=== PATIENT | male | born 1960 | race African-American/Black ===

== ENCOUNTER 2020-04-29 05:24 | Observation (INO) | payer MEDICAID ==
[~2020-04-29] VITALS: Ht 170.2 cm; Wt 50.0 kg
[2020-04-29 05:57] LABS: BASOPHILS 0.3 % (0-2); EOSINOPHILS 0.8 % (0-7); HEMATOCRIT 35.8 % (42.0-54.0); HEMOGLOBIN 11.3 g/dL (13.5-17.5); IMMATURE GRANULOCYTES 0.3 % (0-5); LYMPHOCYTES 26.9 % (15-50); MCHC 31.6 g/dL (31.0-37.0); MCV 88.6 fL (80.0-100.0); MEAN PLATELET VOLUME 8.1 fL (7.4-10.4); NEUTROPHILS 61.7 % (40-80); PLATELET COUNT 294 10x3/uL (130-400); RBC 4.04 10x6/uL (4.20-6.10); RDW 21.4 % (11.5-14.5); WBC 3.9 10x3/uL (4.8-10.8)
[2020-04-29 06:00] VITALS: BP 117/79
--- NOTE | 2020-04-29 06:01 | NUR ---
PT CON'T TO REST QUIETLY. V/S STABLE. LABS PENDING.
[2020-04-29 06:21] LABS: UDS - AMPHET POSITIVE QUAL (NEGATIVE); UDS - BARB NEGATIVE QUAL (NEGATIVE); UDS - BENZO NEGATIVE QUAL (NEGATIVE); UDS - COCAINE NEGATIVE QUAL (NEGATIVE); UDS - OPIATE POSITIVE QUAL (NEGATIVE); UDS - PCP NEGATIVE QUAL (NEGATIVE); UDS - THC POSITIVE QUAL (NEGATIVE)
[2020-04-29 06:21] LABS: CALC OSMOLALITY 273 mosm/kg (275-300); CALCIUM 8.6 mg/dL (8.5-10.1); CARBON DIOXIDE 10.8 mmol/L (21.0-32.0); CHLORIDE - SERUM 97 mmol/L (98-107); CREATININE - SERUM 1.7 mg/dL (0.6-1.3); GLUCOSE 157 mg/dL (74-106); POTASSIUM - SERUM 3.6 mmol/L (3.5-5.1); SODIUM 134 mmol/L (136-145); UREA NITROGEN 21 mg/dL (7-18); eGFR NON AFRICAN AMERICAN 46 mL/min (90-120)
[2020-04-29 06:45] LABS: ALBUMIN 3.5 g/dL (3.4-5.0); ALKALINE PHOSPHATASE 79 U/L (30-120); ALT (SGPT) 28 U/L (10-68); BILIRUBIN - TOTAL 0.45 mg/dL (0.2-1.3); CREATINE KINASE 514 UL (21-232); MAGNESIUM - SERUM 2.6 mg/dL (1.8-2.4); PROTEIN - SERUM 7.3 g/dL (6.4-8.2)
[2020-04-29 06:51] LABS: CKMB 2.3 U/L (0.0-3.6)
--- NOTE | 2020-04-29 07:02 | NUR ---
REPORT TO NEELAM MIKE.
[2020-04-29 07:21] LABS: BILIRUBIN NEGATIVE (NEGATIVE); GLUCOSE NEGATIVE (NEGATIVE); KETONE NEGATIVE (NEGATIVE); NITRITE NEGATIVE (NEGATIVE); UROBILINOGEN NORMAL (NORMAL); WHITE CELLS - URINE RARE /hpf (NEGATIVE)
[2020-04-29 07:22] LABS: BACTERIA FEW /hpf (NEGATIVE); EPITHELIAL CELLS 0-5 /hpf (0-5); RED CELLS - URINE 0-5 /hpf (0-5)
--- NOTE | 2020-04-29 07:25 | NUR ---
DR. OSBALDO MARTINEZ FOR LACTIC ACID REASULT.
[2020-04-29 08:00] VITALS: BP 152/99
--- NOTE | 2020-04-29 08:00 | NUR ---
RECEIVED PT FROM ER ORIENTED MUCH POSSIBLE TO ROOM, BED ALARM ON, IV TO RFA NS @250 PATENT, WILL CONTINUE POC
--- NOTE | 2020-04-29 08:24 | NUR ---
UNABLE TO COMPLETE HISTORY OR MED REC, PT IS NOT AWAKE ENOUGH TO ANSWER ANY QUESTIONS, WILL ATTEMPT LATER TODAY
[2020-04-29 12:25] VITALS: BP 123/86
[2020-04-29 12:59] VITALS: BP 152/99; Ht 170.2 cm; Wt 50.0 kg
--- NOTE | 2020-04-29 15:59 | NUR ---
ATTEMPTED TO CALL 2 PHARMACIES TO OBTAIN MEDICATIONS, ANAHI HAD NO RECORD OF PT. UNABLE TO OBTAIN CURRENT MEDICATIONS
[2020-04-29 16:56] VITALS: BP 147/105
--- NOTE | 2020-04-29 19:00 | NUR ---
BEDSIDE REPORT GIVEN FOR THE PT. INTRODUCED MYSELF HIS NURSE FOR THE SHIFT. EXPLAINED THAT I WOULD BE BACK TO DO A FULL ASSESSMENT FOR THE SHIFT.
--- NOTE | 2020-04-29 21:30 | NUR ---
ASSESSMENT COMPLETED. PT CAME IN WITH POLY SUBSTANCE ABUSE. HE IS DEHYDRATED AND HAS ACUTE KIDNEY INJURY. HE HAS AN IV IN THE RIGHT FOREARM WITH NS INFUSING AT 250 ML/HR. HIS IV SITE IS PATENT AND NO PAIN OR REDNESS AT THE STIE. PT IS VERY THIN. HE HAS BEEN SLEEPING MOST OF THE TIME. SCD'S WERE PLACED ON THE PT. HE IS NOT GETTING OUT OF BED FOR NOW. HE WANTED A SPRITE AND THIS WAS DELIVERED TO HIM. PT WAS INSTRUCTED ON THE INCENTIVE SPIROMETER. HE WAS ABLE TO GET TO ALMOST 2000 ON THE METER. HE IS TRYING TO DO THIS RIGHT. EXPLAINED HOW TO USE AND HOW OFTEN AND HOW MANY TIMES. SO FAR THE PT HAS BEEN VERY PLEASANT.
--- NOTE | 2020-04-30 02:44 | NUR ---
IN PT ROOM TO HANG A NEW BAG OF FLUDID. PT WAS SLEEPING BUT WOKE UP WHEN I ENTERED. HE ASKED ME TO EMPTY IS URINAL FOR HIM. THIS WAS DONE AND URINAL CLEANED OUT
[2020-04-30 04:00] VITALS: BP 151/87
--- NOTE | 2020-04-30 04:15 | NUR ---
PT IS SLEEPING SOUNDLY. NO C/O. IV CONT TO RUN AT 250 ML/HR.
[2020-04-30 05:55] LABS: BASOPHILS 0.2 % (0-2); EOSINOPHILS 0.9 % (0-7); HEMATOCRIT 34.2 % (42.0-54.0); HEMOGLOBIN 11.1 g/dL (13.5-17.5); IMMATURE GRANULOCYTES 0.2 % (0-5); LYMPHOCYTES 23.3 % (15-50); MCHC 32.5 g/dL (31.0-37.0); MEAN PLATELET VOLUME 8.4 fL (7.4-10.4); MONOCYTES 15.6 % (2-11); NEUTROPHILS 59.8 % (40-80); PLATELET COUNT 304 10x3/uL (130-400); RBC 3.97 10x6/uL (4.20-6.10); RDW 21.1 % (11.5-14.5)
[2020-04-30 06:01] LABS: MCV 86.1 fL (80.0-100.0); WBC 5.3 10x3/uL (4.8-10.8)
--- NOTE | 2020-04-30 06:02 | NUR ---
PT AWAKE FOR PO PROTONIX. HE SLEPT MOST ALL OF THE NIGHT WITHOUT PROBLEMS. HIS IV FLUIDS INFUSED WELL. HE FILLED HIS URINAL A FEW TIMES. HE HAS NO C/O THIS MORNING.!!
[2020-04-30 06:26] LABS: ALBUMIN 2.7 g/dL (3.4-5.0); ALKALINE PHOSPHATASE 63 U/L (30-120); ALT (SGPT) 19 U/L (10-68); BILIRUBIN - TOTAL 0.62 mg/dL (0.2-1.3); CALC OSMOLALITY 273 mosm/kg (275-300); CALCIUM 8.2 mg/dL (8.5-10.1); CARBON DIOXIDE 22.7 mmol/L (21.0-32.0); CHLORIDE - SERUM 106 mmol/L (98-107); CREATININE - SERUM 1.1 mg/dL (0.6-1.3); GLUCOSE 74 mg/dL (74-106); POTASSIUM - SERUM 4.1 mmol/L (3.5-5.1); PROTEIN - SERUM 5.7 g/dL (6.4-8.2); SODIUM 138 mmol/L (136-145); UREA NITROGEN 9 mg/dL (7-18); eGFR NON AFRICAN AMERICAN 75 mL/min (90-120)
--- NOTE | 2020-04-30 07:34 | NUR ---
ALERT AND ORIENTED. LUNGS CLEAR BILATERALLY. HEART SOUNDS S1 AND S2 HEARD IN ALL [place]. BOWEL SOUNDS ACTIVE X 4. IV TO RFA PATENT WITHOUT REDNESS. DENIES NEEDS. BED LOW. CALL K[place]AN AND PERSONAL ITEMS IN REACH. WILL CONTINUE TO MONITOR.
[2020-04-30 08:00] VITALS: BP 136/91
[2020-04-30] MEDS ORDERED: NICODERM CQ1 EAC3 TOPICAL (10:57)
--- NOTE | 2020-04-30 11:37 | NUR ---
RESTING IN BED. DENIES NEEDS. WILL CONTINUE TO MONITOR. WAITING DC PAPERWORK.
[2020-04-30 11:59] VITALS: BP 139/76
--- NOTE | 2020-04-30 12:10 | NUR ---
IV REMOVED FROM RFA WITH TIP INTACT FOR DISCHARGE. TELEMETRY REMOVED AND RETURNED TO [facility] AT MONITORS. PATIENT ASSISTED TO SHOWER PER REQUEST.
--- NOTE | 2020-04-30 12:53 | NUR ---
DISCHARGE EDUCATION PROVIDED BOTH WRITTEN AND VERBAL. VERBALIZED UNDERSTANDING. DENIES FURTHER QUESTIONS. WAITING RIDE.
--- NOTE | 2020-04-30 14:01 | NUR ---
BUS TICKET GIVEN TO PATIENT PER REQUEST. PATIENT DC HOME WITH ALL BELONGINGS.
--- NOTE | 2020-04-30 16:37 | CN ---
PATIENT NAME:MANJU SCHAEFFER MEDICAL RECORD: [id number] : 62 LOCATION:[facility] ADMIT DATE: 04/29/20 ACCOUNT: [id number] CONSULTING PHYSICIAN: PATRICE GOMEZ MD REFERRING PHYSICIAN: DONTA LOZOYA MD DATE OF CONSULTATION: 04/30/2020 IDENTIFYING DATA: The patient is 60 years old and he was admitted to the hospital secondary to aggressive behavior. Apparently, he had been using amphetamines, opiates and marijuana and was quite aggressive. When brought to the Emergency Room, he was in metabolic acidosis, which has now been largely corrected. ASSESSMENT: Polysubstance abuse. PLAN: I have reviewed the patient's records, labs, nursing and physician notes. I am not able to see the patient in person since I am in quarantine for COVID. It appears that this is a typical presentation for the patient and that he becomes violent when using narcotics and amphetamines and then later organizes. I believe he does have a substance abuse problem and would recommend referral to a program that would address this. If he refuses I do not see any reasons from a mental health standpoint to keep him in the hospital. If additional assessment is required, I will need the assistance of nursing staff to do some sort of telemedicine interview with the patient and I would be happy to do that if this review and recommendation is insufficient. I will order p.r.n. medication for the patient should he become agitated, but since there is no evidence of direct dangerousness currently and his behaviors were while under the influence of opiates and amphetamines, my suspicion is that this is purely a substance-induced situation. TRANSINT:[id number] Voice Confirmation ID: [id number] DOCUMENT ID: [id number] PATRICE GOMEZ MD at 1637 CC: [id number] DICTATION DATE: 04/30/20 1051 ORNAMENTAL IRON WORKER: 04/30/20 1135 DIS IN 04/30/20 [facility] [address] [place] [address]
== END 2020-04-30 14:02 | disposition home or self-care (01) ==
LOC: D.ER 05:24 → EDBD 07:52 → D.MS 07:52 → OBSVTIME 07:53 → D.MS 04-30 14:02
PROVIDERS: Emergency Medicine; Family Medicine; ADMIT Family Medicine; ATTEND Family Medicine
DX: G92 Toxic encephalopathy (principal); E86.0 Dehydration; N17.9 Acute kidney failure, unspecified; M62.82 Rhabdomyolysis; F17.203 Nicotine dependence unspecified, with withdrawal; F11.10 Opioid abuse, uncomplicated; F15.10 Other stimulant abuse, uncomplicated; F12.10 Cannabis abuse, uncomplicated